=== PATIENT | female | born 1960 | race Hispanic/Latino ===

== ENCOUNTER 2017-09-22 21:52 | Emergency (ER) | payer MEDICARE ==
[2017-09-22 22:09] VITALS: BMI 35.5
[2017-09-22 22:29] VITALS: TEMP 98.5
[2017-09-22] MEDS ORDERED: Albuterol-Ipratrop 3 mg / 0.5 (3 ml) UD IH STA (23:10)
[2017-09-23 00:07] LABS: BASO # 0.04 K/mm3 (0.0-2.0); BASO % 0.5 % (0.0-3.0); EOS # 0.4 (0.0-0.7); EOS % 4.9 % (1.5-5.0); GRAN # 4.32 (1.4-6.5); GRAN % 53.2 % (50.0-68.0); HEMOGLOBIN 13.4 g/dL (12.0-16.0); LYMPH # 2.6 (1.2-3.4); MEAN CELL VOLUME 88.5 fl (80.0-105.0); MEAN CORPUSCULAR HEMOGLOBIN 29.1 pg (25.0-35.0); MEAN CORPUSCULAR HGB CONC 32.9 g/dl (31.0-37.0); MEAN PLATELET VOLUME 10.5 fl (7.0-11.0); MONO # 0.8 (0.1-0.6); MONO % 9.4 % (1.0-6.0); RBC 4.6 10^6/uL (3.5-6.1); RED CELL DISTRIBUTION WIDTH 14.7 % (11.5-14.5); WHITE BLOOD COUNT 8.1 10^3/ul (4.5-11.0)
[2017-09-23] MEDS ORDERED: Albuterol-Ipratrop 3 mg / 0.5 (3 ml) UD IH STA (00:16)
[2017-09-23 00:30] LABS: B-TYPE NATRIURETIC PEPTIDE 19.6 pg/mL (0-450)
[2017-09-23 00:51] LABS: ALB/GLOB RATIO 1.4 (1.1-1.8); ALBUMIN 4.6 g/dL (3.0-4.8); ALT/SGPT 65 U/L (7-56); AST/SGOT 49 U/L (14-36); BLOOD UREA NITROGEN 14 mg/dL (7-21); CALCIUM 9.5 mg/dL (8.4-10.5); GFR AFRICAN-AMERICAN > 60; GFR NON-AFRICAN AMERICAN > 60
[2017-09-23] MEDS ORDERED: Sodium Chloride 0.9% 1,000 ML IV STA (00:53)
--- NOTE | 2017-09-23 02:04 | ED PDOC ---
Arrival/HPI - General Chief Complaint: Cough, Cold, Congestion Time Seen by Provider: 09/22/17 23:10 Historian: Patient - History of Present Illness Narrative History of Present Illness (Text): 09/23/17 02:08 57yr old female with hx of asthma presents today with dry cough x 2 days. pt states she has been having on and off cough x months. pt states he has a history of asthma and has an appointment with [employer] scheduled within the next 2 weeks. Patient states she went to see her primary care physician yesterday and was given cough medication. Patient states the medication is not helping with the cough. Patient states the cough feels tight. She denies chest pain. Denies fevers or chills. She is complaining of postnasal drip. Denies dizziness or weakness. No abdominal pain. Patient states she usually needs antibiotics when her cough gets like this and needs steroids. no sick contacts. pt states she takes insulin at home, but did not take her nighttime dose. Past Medical History - Provider Review Nursing Documentation Reviewed: Yes - Travel History Have you recently traveled outside [place] w/in the past 3 mons?: No - Cardiac Hx Cardiac Disorders: Yes Hx Hypertension: Yes - Pulmonary Hx Asthma: Yes - Neurological Hx Neurological Disorder: No - HEENT Hx HEENT Disorder: No - Renal Hx Renal Disorder: No - Endocrine/Metabolic Hx Diabetes Mellitus Type 2: Yes - Hematological/Oncological Hx Blood Disorders: No - Integumentary Hx Dermatological Disorder: No - Musculoskeletal/Rheumatological Hx Musculoskeletal Disorders: No Hx Falls: No - Gastrointestinal Hx Gastrointestinal Disorders: No - Genitourinary/Gynecological Hx Genitourinary Disorders: No - Psychiatric Hx Psychophysiologic Disorder: No Hx Anxiety: No Hx Depression: No Hx Emotional Abuse: No Hx Physical Abuse: No Hx Substance Use: No - Surgical History Hx Appendectomy: Yes Hx Section: Yes Hx Hysterectomy: Yes - Anesthesia Hx Anesthesia: Yes Hx Anesthesia Reactions: No - Suicidal Assessment Feels Threatened In Home Enviroment: No Family/Social History - Physician Review Nursing Documentation Reviewed: Yes Family/Social History: Unknown Family HX Smoking Status: Former Smoker Hx Alcohol Use: Yes (OCCASIONALLY) Hx Substance Use: No Allergies/Home Meds Allergies/Adverse Reactions: Allergies shellfish derived Allergy (Verified 09/22/17 22:10) RASH iv contrast Allergy (Uncoded 09/22/17 22:10) RASH Home Medications: Home Meds Medication Instructions Recorded Confirmed GlipiZIDE [Glucotrol] 4 mg PO BID 09/22/17 09/22/17 Losartan [Cozaar] 10 mg PO DAILY 09/22/17 09/22/17 MetFORMIN [glucoPHAGE] 1,000 mg PO BID 09/22/17 09/22/17 Promethazine DM [Phenergan DM 1 tsp PO Q6H PRN 09/22/17 09/22/17 Syrup] Simvastatin [Zocor] 20 mg PO DAILY 09/22/17 09/22/17 Simvastatin [Zocor] 20 mg PO DAILY 09/22/17 09/22/17 Review of Systems - Review of Systems Constitutional: absent: Fatigue, Fevers ENT: Sinus Congestion. absent: Sore Throat Respiratory: Cough, Wheezing. absent: SOB Cardiovascular: absent: Chest Pain Gastrointestinal: absent: Abdominal Pain, Nausea, Vomiting Genitourinary Female: absent: Dysuria Musculoskeletal: absent: Arthralgias Skin: absent: Rash, Pruritis Neurological: absent: Headache, Dizziness Psychiatric: absent: Anxiety, Depression Physical Exam Vital Signs Reviewed: Yes Vital Signs Temp Pulse Resp BP Pulse Ox 09/22/17 22:00 98.5 F 90 16 128/79 97 Temperature: Afebrile Blood Pressure: Normal Pulse: Regular Respiratory Rate: Normal Appearance: Positive for: Well-Appearing, Non-Toxic, Comfortable Pain Distress: None Mental Status: Positive for: Alert and Oriented X 3 - Systems Exam Head: Present: Atraumatic Mouth: Present: Moist Mucous Membranes Neck: Present: Normal Range of Motion Respiratory/Chest: Present: Clear to Auscultation, Good Air Exchange, Wheezes. No: Respiratory Distress, Accessory Muscle Use, Decreased Breath Sounds Cardiovascular: Present: Regular Rate and Rhythm. No: Tachycardic Abdomen: No: Tenderness, Distention Lower Extremity: No: Edema Neurological: Present: GCS=15 Skin: Present: Warm, Dry, Normal Color. No: Rashes Psychiatric: Present: Alert, Oriented x 3 Medical Decision Making ED Course and Treatment: 09/23/17 01:54 57yr old female with cough x 3 days that has been intermittent for months. pt with hx of asthma. duoneb solu-medrol pt denies cp. pt with dry cough in er. vitals stable. cbc; wnl cmp; glucose; 330 d-dimer; <200 bnp; wnl cxr; no infiltrate or effusion. reviewed by dr. campos pt requesting abx; states she does not want Z-pack; states amoxicillin works better. pt reassessment; after solumedrol and duoneb; pt feeling better. lungs cta bilaterally; vitals stable. wants to go home. pt is refusing fluids and refusing insulin; pt states she is going to take her insulin at night; she states she usually takes her insulin before bed. I discussed all results and the patient. Stressed the importance of follow-up with the doctor. Stressed the importance of taking medications as prescribed. Stressed importance of follow-up with the [employer]. Patient states she has an appointment scheduled. Patient verbalizes understanding of discharge instructions and need for immediate followup. all aspects of this case were discussed the attending of record. impression; cough, asthma, hyperglycemia prednisone daily x 4 days augmentin 1 tablet twice daily x 10 days use nebulizer 3 times daily as needed. increase fluids follow up with the primary care physician within the next 2 days. 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[employer] within the next 2 days Return immediately if symptoms worsen persist or if new concerning symptoms develop - Lab Interpretations Lab Results: 09/23/17 00:01 09/23/17 00:01 Lab Results 09/23/17 01:00: D-Dimer, Quantitative < 200 09/23/17 00:01: WBC 8.1, RBC 4.60, Hgb 13.4, Hct 40.7, MCV 88.5, MCH 29.1, MCHC 32.9, RDW 14.7 H, Plt Count 195, MPV 10.5, Gran % 53.2, Lymph % (Auto) 32.0, Shelby % (Auto) 9.4 H, Eos % (Auto) 4.9, Baso % (Auto) 0.5, Gran # 4.32, Lymph # 2.6, Shelby # 0.8 H, Eos # 0.4, Baso # 0.04 09/23/17 00:01: Sodium 139, Potassium 4.1, Chloride 98, Carbon Dioxide 29, Anion Gap 16, BUN 14, Creatinine 0.5 L, Est GFR ( Amer) > 60, Est GFR ( Non-Af Amer) > 60, Random Glucose 330 H*, Calcium 9.5, Total Bilirubin 0.5, AST 49 H, ALT 65 H, Alkaline Phosphatase 84, NT-Pro-B Natriuret Pep 19.6, Total Protein 7.9, Albumin 4.6, Globulin 3.3, Albumin/Globulin Ratio 1.4 - RAD Interpretation Radiology Orders: 09/22/17 23:11 CHEST TWO VIEWS (PA/LAT) [RAD] Stat - Medication Orders Current Medication Orders: Discontinued Medications Albuterol/Ipratropium (Duoneb 3 Mg/0.5 Mg (3 Ml) Ud) 3 ml IH STAT STA Stop: 09/22/17 23:11 Last Admin: 09/22/17 23:58 Dose: 3 ml Albuterol/Ipratropium (Duoneb 3 Mg/0.5 Mg (3 Ml) Ud) 3 ml IH STAT STA Stop: 09/23/17 00:17 Last Admin: 09/23/17 00:35 Dose: 3 ml Sodium Chloride (Sodium Chloride 0.9%) 1,000 mls @ 999 mls/hr IV .Q1H1M STA Stop: 09/23/17 01:53 Methylprednisolone (Solu-Medrol) 125 mg IVP STAT STA Stop: 09/22/17 23:11 Last Admin: 09/22/17 23:58 Dose: 125 mg IVP Administration Document 09/22/17 23:58 GENEVIEVE (Rec: 09/22/17 23:58 GENEVIEVE [id number]) Charges for Administration # of IVP Administrations 1 Disposition/Present on Arrival - Present on Arrival Any Indicators Present on Arrival: Yes History of DVT/PE: No History of Uncontrolled Diabetes: Yes Urinary Catheter: No History of Decub. Ulcer: No History Surgical Site Infection Following: None - Disposition Have Diagnosis and Disposition been Completed?: Yes Diagnosis: Hyperglycemia, Cough, Asthma Disposition: HOME/ ROUTINE Disposition Time: 02:04 Patient Plan: Discharge Condition: GOOD Discharge Instructions (ExitCare): Acute Cough (ED) Additional Instructions: prednisone daily x 4 days augmentin 1 tablet twice daily x 10 days use nebulizer 3 times daily as needed. increase fluids follow up with the primary care physician within the next 2 days. follow up with thepulmonologist within the next 2 days Return immediately if symptoms worsen persist or if new concerning symptoms develop Prescriptions: Albuterol 0.083% [Albuterol 0.083% Inhal Eboni (2.5 mg/3 ml) UD] 1 vial IH TID PRN #1 packet PRN Reason: Cough Amoxicillin/Clavulanate [Augmentin 875 MG-125 MG] 1 tab PO BID #20 tab predniSONE [predniSONE Tab] 3 tab PO DAILY #12 tab Referrals: Rigoberto Hallman MD [Primary Care Provider] - Follow up with primary
[2017-09-23 02:14] VITALS: BP 132/76; PULSE 88; RESP 18; O2SAT 98
--- NOTE | 2017-09-23 08:32 | RAD ---
HISTORY: cough COMPARISON: No prior. TECHNIQUE: Chest PA and lateral FINDINGS: LUNGS: No active pulmonary disease. PLEURA: No significant pleural effusion identified. No pneumothorax apparent. CARDIOVASCULAR: Normal. OSSEOUS STRUCTURES: No significant abnormalities. VISUALIZED UPPER ABDOMEN: Normal. OTHER FINDINGS: None. IMPRESSION: No active disease.
== END 2017-09-23 02:29 | disposition home or self-care (01) ==
LOC: ED 21:52
DX: J45.909 Unspecified asthma, uncomplicated (principal); E11.65 Type 2 diabetes mellitus with hyperglycemia; R05 Cough; I10 Essential (primary) hypertension; Z87.891 Personal history of nicotine dependence
CPT/HCPCS: 71046; 80053; 83880; 85025; 85378; 94640; 96361; 96374; 99282; J2930; J7040